=== PATIENT | female | born 1980 | race Asian ===

== ENCOUNTER 2020-08-23 12:14 | Inpatient (IN) | payer OTHER ==
[~2020-08-23] VITALS: Ht 162.6 cm; Wt 93.4 kg
[2020-08-23] MEDS ORDERED: LR 1,000 ML IV ONE (13:15)
[2020-08-23] MEDS ORDERED: CEFAZOLIN 2 GM IVPB PREMIX 50 ML IV ONE (13:15)
[2020-08-23 13:33] LABS: BILIRUBIN,URINE NEGATIVE (NEGATIVE); COLOR,URINE YELLOW (YELLOW); GLUCOSE,URINE NEGATIVE (NEGATIVE); KETONES,URINE NEGATIVE (NEGATIVE); LEUKOCYTE ESTERASE ,URINE 3+ (NEGATIVE); NITRITE, URINE NEGATIVE (NEGATIVE); PROTEIN URINE NEGATIVE (NEGATIVE); UROBILINOGEN,URINE 0.2 (0.2-1.0)
[2020-08-23 13:34] LABS: BLOOD, URINE TRACE (NEGATIVE); CLARITY/URINE HAZY (CLEAR)
[2020-08-23 13:35] LABS: BASOPHILS % (AUTO) 0.2 % (0.0-2.0); EOSINOPHILS % (AUTO) 0.3 % (0.0-4.0); HEMATOCRIT 38.5 % (36-48); HEMOGLOBIN 12.7 g/dL (12.0-16.0); LYMPHOCYTES # (AUTO) 1.3 K/uL (1.0-5.5); MEAN CORPUSCULAR HEMOGLOBIN 25 pg (27-31); MEAN CORPUSCULAR HGB CONC 33 % (32-36); MEAN CORPUSCULAR VOLUME 75 fL (79.0-98.0); MONOCYTES # (AUTO) 0.4 K/uL (0.0-1.0); MONOCYTES % (AUTO) 7.3 % (1.7-9.3); NEUTROPHILS # (AUTO) 4.4 K/uL (1.8-7.7); NEUTROPHILS % (AUTO) 71.2 % (40.0-70.0); PLATELET COUNT (AUTO) 219 K/uL (130-430); RED BLOOD CELL COUNT(AUTO) 5.12 MIL/uL (4.2-6.2); RED CELL DISTRIBUTION WIDTH 14.5 % (9.0-15.0); WHITE BLOOD COUNT (AUTO) 6.1 K/uL (4.8-10.8)
[2020-08-23 13:42] LABS: CALCIUM 9.2 mg/dL (8.4-11.0); CREATININE 0.74 mg/dL (0.55-1.30); POTASSIUM 4.1 mmol/L (3.5-5.1)
[2020-08-23 13:44] LABS: BACTERIA,URINE MODERATE /HPF (None Seen); WBC,URINE 20-50 /HPF (0-3)
[2020-08-23 13:48] LABS: ALBUMIN 2.6 g/dL (3.4-4.8); TOTAL BILIRUBIN 0.5 mg/dL (0.0-1.0)
[2020-08-23] MEDS ORDERED: HYDROmorphone 2 MG/ML VIAL IVP ONE (19:33)
[2020-08-23] MEDS ORDERED: DEXAMETHASONE SOD PHOSPHATE 4 MG/ML VIAL IVP ONE (19:33)
[2020-08-23] MEDS ORDERED: ePHEDrine sulfate 50 MG/ML VIAL IVP ONE (19:33)
[2020-08-23] MEDS ORDERED: LR 1,000 ML IV.SOLN IV ONE (19:33)
[2020-08-23] MEDS ORDERED: MORPHINE SULFATE 10MG/10ML PF AMP EP ONE (19:33)
[2020-08-23] MEDS ORDERED: OXYTOCIN/0.9 % SODIUM CHLORIDE 20 UNITS/1,000 ML BAG IV ONE (19:33)
[2020-08-23] MEDS ORDERED: NS IRRIG SOLN 1000 ML IR ONE (19:33)
[2020-08-23] MEDS ORDERED: BUPIVACAINE /PF 0.75% 10 ML VIAL INJ ONE (19:33)
[2020-08-23] MEDS ORDERED: METOCLOPRAMIDE HCL 10 MG/2 ML VIAL IVP ONE (19:33)
[2020-08-23] MEDS ORDERED: OXYTOCIN 10 UNIT/ML VIAL ONE (20:03)
[2020-08-23] MEDS ORDERED: ACETAMINOPHEN I.V. 1000 MG 100 ML IV ONE (20:18)
[2020-08-23] MEDS ORDERED: HEMABATE 250MCG/ML VIAL AMP IM ONE (20:30)
[2020-08-23] MEDS ORDERED: DIPHENHYDRAMINE HCL 50 MG CAPSULE PO PRN (20:45)
[2020-08-23] MEDS ORDERED: NALOXONE HCL 1 MG in NACL 0.9% 1,000 ML IV PRN ×4 (20:45)
[2020-08-23] MEDS ORDERED: NALOXONE HCL 0.4 MG/ML AMP (NARCAN) IVP PRN ×5 (20:45)
[2020-08-23] MEDS ORDERED: MEPERIDINE HCL/PF 25 MG/ML DISP.SYRIN IVP PRN ×2 (20:45)
[2020-08-23] MEDS ORDERED: HYDROmorphone 1 MG/ML INJ. CARTRIDGE IVP PRN (20:45)
[2020-08-23] MEDS ORDERED: LR 1,000 ML IV SCH (20:45)
[2020-08-23] MEDS ORDERED: HYDROmorphone 2 MG/ML VIAL IVP PRN ×2 (20:45)
[2020-08-23] MEDS ORDERED: KETOROLAC TROMETHAMINE 60 MG/2 ML VIAL IM PRN (20:45)
[2020-08-23] MEDS ORDERED: DIPHENHYDRAMINE INJ 50 MG/ML VIAL IVP PRN (20:45)
[2020-08-23] MEDS ORDERED: MIDAZOLAM HCL 5 MG/5 ML VIAL IVP PRN (20:45)
[2020-08-23] MEDS ORDERED: ONDANSETRON HCL 4 MG/2 ML VIAL IVP PRN (20:45)
[2020-08-23] MEDS ORDERED: ePHEDrine sulfate 50 MG/ML VIAL IVP PRN (20:45)
[2020-08-23] MEDS ORDERED: DIPHENHYDRAMINE INJ 50 MG/ML VIAL ONE (21:20)
[2020-08-24] MEDS ORDERED: LANOLIN 7 GM OINT. TP PRN (01:15)
[2020-08-24] MEDS ORDERED: OXYTOCIN/0.9 % SODIUM CHLORIDE 1,000 ML IV ONE (01:15)
[2020-08-24] MEDS ORDERED: LR 1,000 ML IV SCH (01:15)
[2020-08-24] MEDS ORDERED: OXYCODONE/ACETAMINOPHEN 5-325 TABLET PO PRN (01:15)
[2020-08-24] MEDS ORDERED: HYDROcodone/ACETAMIN 5-325 MG TAB (NORCO/ VICODIN) PO PRN (01:15)
[2020-08-24] MEDS: IBUPROFEN 600 MG TABLET PO SCH ×4 (06:23→23:47)
[2020-08-24] MEDS ORDERED: LABETALOL HCL 100 MG TABLET PO ONE (09:00)
[2020-08-24] MEDS: DOCUSATE SODIUM 100 MG CAPSULE PO SCH ×2 (09:00→21:13)
[2020-08-24] MEDS: OXYCODONE/ACETAMINOPHEN 5-325 TABLET PO PRN (18:08)
[2020-08-24] MEDS: SENNOSIDES/DOCUSATE SODIUM 1 TAB TABLET(SENOKOT-S) PO SCH (21:13)
[2020-08-24] MEDS: LABETALOL HCL 100 MG TABLET PO SCH (21:25)
[2020-08-25] MEDS: OXYCODONE/ACETAMINOPHEN 5-325 TABLET PO PRN (01:37)
[2020-08-25] MEDS: IBUPROFEN 600 MG TABLET PO SCH ×3 (05:46→17:52)
[2020-08-25 07:30] LABS: BASOPHILS % (AUTO) 0.3 % (0.0-2.0); EOSINOPHILS # (AUTO) 0.1 K/uL (0.0-0.4); EOSINOPHILS % (AUTO) 0.6 % (0.0-4.0); HEMOGLOBIN 10.7 g/dL (12.0-16.0); LYMPHOCYTES # (AUTO) 1.9 K/uL (1.0-5.5); LYMPHOCYTES % (AUTO) 19.6 % (20.5-51.5); MEAN CORPUSCULAR HEMOGLOBIN 25 pg (27-31); MEAN CORPUSCULAR HGB CONC 33 % (32-36); MEAN CORPUSCULAR VOLUME 76 fL (79.0-98.0); MONOCYTES # (AUTO) 0.6 K/uL (0.0-1.0); MONOCYTES % (AUTO) 6.3 % (1.7-9.3); NEUTROPHILS # (AUTO) 6.9 K/uL (1.8-7.7); NEUTROPHILS % (AUTO) 73.2 % (40.0-70.0); PLATELET COUNT (AUTO) 196 K/uL (130-430); RED BLOOD CELL COUNT(AUTO) 4.37 MIL/uL (4.2-6.2); RED CELL DISTRIBUTION WIDTH 15.1 % (9.0-15.0); WHITE BLOOD COUNT (AUTO) 9.5 K/uL (4.8-10.8)
[2020-08-25] MEDS: LABETALOL HCL 100 MG TABLET PO SCH ×2 (09:35→21:14)
[2020-08-25] MEDS: DOCUSATE SODIUM 100 MG CAPSULE PO SCH ×2 (11:07→21:07)
[2020-08-25] MEDS: SIMETHICONE 80 MG TAB.CHEW PO PRN ×2 (11:07→18:51)
[2020-08-25] MEDS ORDERED: LABETALOL HCL 100 MG TABLET PO ONE (17:15)
[2020-08-25] MEDS: SENNOSIDES/DOCUSATE SODIUM 1 TAB TABLET(SENOKOT-S) PO SCH (21:07)
[2020-08-26] MEDS: IBUPROFEN 600 MG TABLET PO SCH ×3 (00:05→12:50)
[2020-08-26 02:23] VITALS: BP_SYST 148
[2020-08-26] MEDS: LABETALOL HCL 100 MG TABLET PO SCH (09:03)
[2020-08-26] MEDS: OXYCODONE/ACETAMINOPHEN 5-325 TABLET PO PRN (10:21)
[2020-08-26] MEDS: SIMETHICONE 80 MG TAB.CHEW PO PRN (12:51)
== END 2020-08-26 16:15 | disposition home or self-care (01) | DRG 540 ==
LOC: SPU 12:14 → OBSVTOIN 12:14 → SPU 13:57
PROVIDERS: ADMIT Obstetrics & Gynecology; ATTEND Obstetrics & Gynecology
PROC: 10D00Z1 Extraction of Products of Conception, Low, Open Approach (ICD-10-PCS; principal; 2020-08-23 18:00)
DX: O13.4 Gestational [pregnancy-induced] hypertension without significant proteinuria, complicating childbirth (principal); O24.424 Gestational diabetes mellitus in childbirth, insulin controlled; O36.63X0 Maternal care for excessive fetal growth, third trimester, not applicable or unspecified; Z37.0 Single live birth; Z20.822 Contact with and (suspected) exposure to COVID-19; Z3A.39 39 weeks gestation of pregnancy
CPT/HCPCS: 36415; 80053; 81000; 85025; 86592; 86886; 86900; 86901; 87086; 94760; J0131; J0690; J1100; J1170; J1200; J2274; J2590; J2765; J3490; J7120; Q0163